=== PATIENT | female | born 1960 | race Caucasian/White ===

== ENCOUNTER 2018-05-28 12:45 | Day surgery (SDC) | payer BC ==
[~2018-05-28] VITALS: Ht 175.3 cm; Wt 129.5 kg
[2018-05-28] MEDS ORDERED: ATOR40TA PO (13:33)
[2018-05-28] MEDS ORDERED: LEVSOD150 PO (13:34)
[2018-05-28] MEDS ORDERED: METF500C PO (13:34)
[2018-05-28] MEDS ORDERED: LOSA50 PO (13:34)
[2018-05-28] MEDS ORDERED: CELE200 PO (13:35)
[2018-05-28] MEDS ORDERED: Premarin0.3 MG PO (13:35)
[2018-05-28] MEDS ORDERED: BUSP10 PO (13:37)
== END 2018-05-28 14:50 | disposition home or self-care (01) ==
LOC: ORSCSDS 12:45
PROVIDERS: Surgery
PROC: 0DBK8ZX Excision of Ascending Colon, Via Natural or Artificial Opening Endoscopic, Diagnostic (ICD-10-PCS; principal; 2018-05-28 14:00)
DX: Z12.11 Encounter for screening for malignant neoplasm of colon (principal); K63.5 Polyp of colon; K57.30 Diverticulosis of large intestine without perforation or abscess without bleeding; E11.9 Type 2 diabetes mellitus without complications; I10 Essential (primary) hypertension; J45.909 Unspecified asthma, uncomplicated; E03.9 Hypothyroidism, unspecified; Z79.899 Other long term (current) drug therapy; E78.5 Hyperlipidemia, unspecified; E66.01 Morbid (severe) obesity due to excess calories; Z68.41 Body mass index [BMI] 40.0-44.9, adult
CPT/HCPCS: 82947; 88305; J7120

== ENCOUNTER 2023-04-24 08:30 | Day surgery (SDC) | payer OTHER ==
[~2023-04-24] VITALS: Ht 175.3 cm; Wt 111.6 kg
[~2023-04-24 08:30] MED LIST: ATOR40TA PO; BUSP10 PO; CELE200 PO; GABA100 PO; HYDCHL12.5 PO; LEVOTHYROXINE137 M11 PO; LEVSOD150 PO; LOSA50 PO; MELO7.5 PO; METF500C PO; PRAV20 PO; Premarin0.3 MG PO
[2023-04-24] MEDS ORDERED: DONA750 MG (09:07)
[2023-04-24 10:05] VITALS: BP 129/67
== END 2023-04-24 10:18 | disposition home or self-care (01) ==
LOC: ORSCSDS 08:30
PROVIDERS: Student in an Organized Health Care Education/Training Program
PROC: 08RJ3JZ Replacement of Right Lens with Synthetic Substitute, Percutaneous Approach (ICD-10-PCS; principal; 2023-04-24 10:00)
DX: E11.36 Type 2 diabetes mellitus with diabetic cataract (principal); Z87.891 Personal history of nicotine dependence; F41.9 Anxiety disorder, unspecified; J45.909 Unspecified asthma, uncomplicated; F32.A Depression, unspecified; E05.90 Thyrotoxicosis, unspecified without thyrotoxic crisis or storm; Z79.84 Long term (current) use of oral hypoglycemic drugs; Z79.899 Other long term (current) drug therapy
CPT/HCPCS: 82947; J2250; J3010; J7040; V2632

== ENCOUNTER 2023-05-04 09:05 | Day surgery (SDC) | payer OTHER ==
[~2023-05-04] VITALS: Ht 175.3 cm; Wt 112.5 kg
[~2023-05-04 09:05] MED LIST changes: +DONA750 MG
[2023-05-04] MEDS ORDERED: ERGO400 (09:56)
[2023-05-04] MEDS ORDERED: Vitamin B-1250 MC1 (09:57)
[2023-05-04 10:34] VITALS: BP 130/76
== END 2023-05-04 10:45 | disposition home or self-care (01) ==
LOC: ORSCSDS 09:05
PROVIDERS: Student in an Organized Health Care Education/Training Program
PROC: 08RK3JZ Replacement of Left Lens with Synthetic Substitute, Percutaneous Approach (ICD-10-PCS; principal; 2023-05-04 10:30)
DX: E11.36 Type 2 diabetes mellitus with diabetic cataract (principal); Z96.1 Presence of intraocular lens; H25.12 Age-related nuclear cataract, left eye; I10 Essential (primary) hypertension; F41.9 Anxiety disorder, unspecified; Z87.891 Personal history of nicotine dependence; E05.90 Thyrotoxicosis, unspecified without thyrotoxic crisis or storm; F32.A Depression, unspecified; J45.909 Unspecified asthma, uncomplicated; Z79.84 Long term (current) use of oral hypoglycemic drugs; Z79.899 Other long term (current) drug therapy
CPT/HCPCS: 82947; J2250; J3010; J7040; V2632

== ENCOUNTER 2023-11-26 08:04 | Day surgery (SDC) | payer OTHER ==
[2023-11-26] VITALS (16 sets, daily range): BP systolic 94–138; BP diastolic 47–75
[~2023-11-26] VITALS: Ht 175.3 cm; Wt 107.9 kg
[~2023-11-26 08:04] MED LIST changes: +ERGO400; +KETO.5OPSO; +TRAM50 PO; +Vitamin B-1250 MC1
[2023-11-26] MEDS ORDERED: Lactated Ringer's 1,000 ML IV SCH ×2 (08:05→10:50)
[2023-11-26] MEDS ORDERED: Chlorhexidine Mouth Care 15 ML UDC MT SCH (08:05)
[2023-11-26] MEDS ORDERED: Ropivacaine 0.5% HCl/Pf 123.125 MG,EPINEPHrine HCL 0.25 MG,Ketorolac Tromethamine 15 MG... INFIL SCH (08:05)
[2023-11-26] MEDS ORDERED: OxyCODONE HCL 10 MG TABCR PO SCH (08:05)
[2023-11-26] MEDS ORDERED: Acetaminophen 500 MG Tab PO SCH ×2 (08:05→16:00)
[2023-11-26] MEDS ORDERED: Tranexamic Acid 100 ML IV SCH ×2 (08:30→10:05)
[2023-11-26] MEDS ORDERED: CeFAZolin Sodium 2,000 MG in NS 100 ML IV SCH ×2 (08:30→20:00)
[2023-11-26] MEDS ORDERED: propofoL 60 ML IV ONE (08:41)
[2023-11-26] MEDS ORDERED: FentaNYL Citrate 50 MCG/ML 2 ML Injection ONE (08:41)
[2023-11-26] MEDS ORDERED: Midazolam HCl 1MG / ML 2ML Vial ONE (10:34)
[2023-11-26] MEDS ORDERED: DiphenhydrAMINE HCL 25 MG Cap PO PRN (10:50)
[2023-11-26] MEDS ORDERED: HYDROmorphone HCl/Pf 1MG SYR IV PRN (10:50)
[2023-11-26] MEDS ORDERED: Promethazine HCl 25 MG Tab PO PRN (10:50)
[2023-11-26] MEDS ORDERED: Ondansetron HCl 2 MG / ML 2ML Vial IV PRN (10:50)
[2023-11-26] MEDS ORDERED: OxyCODONE HCL 5 MG TAB PO PRN ×2 (10:50)
[2023-11-26] MEDS ORDERED: Metoclopramide HCl 5MG / ML 2ML Vial IV PRN (10:50)
[2023-11-26] MEDS ORDERED: ePHEDrine Sulfate 50 MG/ML 1ML Injection ONE (11:04)
[2023-11-26] MEDS ORDERED: propofoL 20 ML IV ONE (11:48)
[2023-11-26] MEDS ORDERED: Ketorolac Tromethamine 30mg Vial IV SCH (12:00)
[2023-11-26] MEDS ORDERED: Dexamethasone Sod Phos 10 MG/ML 1ML VIAL ONE (12:15)
[2023-11-26] MEDS ORDERED: Phenylephrine HCl 100 MCG/ML-NS 10MLSYR (1MG/10ML) ONE (12:15)
[2023-11-26] MEDS ORDERED: Ondansetron HCl 2 MG / ML 2ML Vial ONE (12:15)
[2023-11-26] MEDS ORDERED: Glycopyrrolate 0.2 MG/ML 5ML VIAL ONE (12:16)
[2023-11-26] MEDS ORDERED: Ketorolac Tromethamine 30mg Vial ONE (12:57)
--- NOTE | 2023-11-26 13:43 | NUR ---
PACU TO 219 PT ARRIVED ON HER BED FROM PACU, A/OX 4, ABLE TO WIGGLE TOES AND LIFT LEGS OFF THE BED. DISCUSSED PLAN OF CARE FOR THE DAY, NO QUESTIONS AT THIS TIME.
--- NOTE | 2023-11-26 19:36 | NUR ---
SHIFT SUMMARY POD0 L TKA, A/OX4, VSS, TOLERATING PO, UP WITH THERAPY AND IN THE CHAIR, SEVAL VOIDS SINCE SURGERY, PT LOST IV ACCESS WHILE GETTING UP WITH THERAPY WHEN SHE HIT HER HAND ON THE BEDRAIL. NO ACUTE EVENTS THIS SHIFT, CALL LIGHT IN REACH.
[2023-11-26] MEDS ORDERED: Magnesium Hydroxide Conc 10 ML UDC PO PRN (23:10)
[2023-11-26] MEDS ORDERED: Bisacodyl 10 MG Supp PR PRN (23:10)
[2023-11-27] MEDS ORDERED: CeFAZolin Sodium 2,000 MG in NS 100 ML IV SCH
[2023-11-27 03:59] VITALS: BP 128/64
[2023-11-27 05:12] LABS: BASOPHILS ABSOLUTE AUTO 0.01 K/mm3 (0.00-0.23); BASOPHILS PERCENT AUTO 0 % (0-2); EOSINOPHILS ABSOLUTE AUTO 0.01 K/mm3 (0.00-0.68); EOSINOPHILS PERCENT AUTO 0 % (0-6); Hemoglobin 13.8 g/dL (11.5-16.0); IMMATURE GRAN ABSOLUTE AUTO 0.07 K/mm3 (0.00-0.10); IMMATURE GRAN PERCENT AUTO 1 % (0-1); LYMPHOCYTES ABSOLUTE AUTO 1.96 K/mm3 (0.84-5.20); LYMPHOCYTES PERCENT AUTO 15 % (21-46); MONOCYTES ABSOLUTE AUTO 0.62 K/mm3 (0.16-1.47); MONOCYTES PERCENT AUTO 5 % (4-13); Mean Corpuscular HGB 33.1 pg (26.0-34.0); Mean Corpuscular HGB Conc 34.5 g/dL (31.5-36.5); Mean Corpuscular Volume 96 fL (80-100); Mean Platelet Volume 9.6 fL (9.1-12.4); NEUTROPHILS ABSOLUTE AUTO 10.55 K/mm3 (1.96-9.15); NEUTROPHILS PERCENT AUTO 80 % (41-73); Platelet Count 230 K/mm3 (150-400); RDW Coefficient Variation 12.2 % (11.7-14.2); Red Blood Cell Count 4.17 M/mm3 (3.80-5.20); White Blood Cell Count 13.22 K/mm3 (4.00-11.30)
[2023-11-27 06:03] LABS: Bun/Creatinine Ratio 16.9 (12.0-20.0); Calcium, Blood 8.6 mg/dL (8.5-10.1); Creatinine, Blood 0.65 mg/dL (0.40-1.00); Magnesium, Blood 1.9 mg/dL (1.6-2.4); Potassium, Blood 3.9 mmol/L (3.5-5.5)
--- NOTE | 2023-11-27 06:35 | NUR ---
SUMMARY- PT HAS BEEN UP TO VOID AND AMBULATE. PT HAS BEEN USING GB AND FWW W/ OUT ISSUE. PT DISCOMFORT TX WELL PER MAR. PT HAS RESTED COMFORTABLY THIS SHIFT. PT DRESSING IS C/D/I. CALL LIGHT IN REACH.
[2023-11-27] MEDS ORDERED: OXYC5 PO (07:11)
[2023-11-27] MEDS ORDERED: ASPI81CH PO (07:12)
[2023-11-27] MEDS ORDERED: Insulin Human Lispro 100 Units/ML 3ML Syringe SC SCH (07:30)
[2023-11-27 07:36] VITALS: BP 150/68
[2023-11-27] MEDS ORDERED: MetFORMIN HCl 500 mg PO SCH (08:00)
[2023-11-27] MEDS ORDERED: Aspirin 81 MG Chew PO SCH (09:00)
[2023-11-27] MEDS ORDERED: HydroCHLOROthiazide 25 mg Tab PO SCH (09:00)
[2023-11-27] MEDS ORDERED: Docusate Sodium 100 MG Cap PO SCH (09:00)
[2023-11-27] MEDS ORDERED: Losartan Potassium 50 MG Tab PO SCH (09:00)
--- NOTE | 2023-11-27 14:14 | NUR ---
DISCHARGE SUMMARY POD1 L TKA, A/OX4, VSS, TOLERATING PO, PAIN WELL MANAGED, VOIDING INDEPENDENTLY, WORKED WITH THERAPY, AMBULATING SBA. REMOVED IV ACCESS DURING DC INSTRUCTIONS. DISCUSSED DC INSTRUCTIONS INCLUDING HOME CARE, MEDICATIONS, AND FOLLOW UP APPOINTMENTS. NO QUESTIONS AT THIS TIME, PROVIDED HER WITH AN ADDITIONAL DRESSING TO CHANGE AT HOME PER INSTRUCTIONS. ESCORTED OUT VIA WC TO PRIVATE AUTO.
== END 2023-11-27 13:31 | disposition home or self-care (01) ==
LOC: ORSCMMR 08:04 → ORD 10:30 → ORSCMMR 10:30 → SURS 12:58 → ORD 13:15 → ORSCMMR 11-27 01:05 → SURS 11-27 01:05 → ORSCMMR 11-27 13:31 → SURS 11-27 13:31
PROVIDERS: Orthopaedic Surgery
PROC: 0SRD0JA Replacement of Left Knee Joint with Synthetic Substitute, Uncemented, Open Approach (ICD-10-PCS; principal; 2023-11-26 10:30)
PROC: 8E0Y0CZ Robotic Assisted Procedure of Lower Extremity, Open Approach (ICD-10-PCS; principal; 2023-11-26 10:30)
DX: M17.12 Unilateral primary osteoarthritis, left knee (principal); E11.9 Type 2 diabetes mellitus without complications; I50.9 Heart failure, unspecified; F32.A Depression, unspecified; E05.90 Thyrotoxicosis, unspecified without thyrotoxic crisis or storm; Z79.899 Other long term (current) drug therapy; Z87.891 Personal history of nicotine dependence; Z79.84 Long term (current) use of oral hypoglycemic drugs
CPT/HCPCS: 36415; 73560-LT; 80048; 82947; 83735; 85025; 97110; 97116; 97161; 97530; A9270; C1713; C1776; J0171; J0690; J0735; J1100; J1885; J2250; J2371; J2405; J2704; J2795; J3010; J7120

== ENCOUNTER 2025-02-03 13:52 | Day surgery (SDC) | payer OTHER ==
[2025-02-03] VITALS (13 sets, daily range): BP systolic 114–190; BP diastolic 66–104
[~2025-02-03] VITALS: Ht 172.7 cm; Wt 113.2 kg
[~2025-02-03 13:52] MED LIST changes: +ASPI81CH PO; +OXYC5 PO
[2025-02-03] MEDS ORDERED: GLIP5 PO (14:40)
--- NOTE | 2025-02-03 15:00 | NUR ---
History, Chart, Medications and Allergies reviewed before start of procedure.Patient confirms NPO status and agrees with scheduled surgery. Patient States Post-Procedure ride home has been arranged. Pre-Op teaching done. Pt verbalizes understanding.
--- NOTE | 2025-02-03 15:28 | NUR ---
02/03/25 1528 Kateryna Marvin CONFIRMED AND REVIEWED H&P, MEDCICATIONS, ALLERGIES, MEDICAL HISTORY, RESPIRATORY HISTORY, VITAL SIGNS, 3-LEAD EKG, CONSENTS, AND PHYSICIAN ORDERS. PATIENT CONFIRMS NPO STATUS AND AGREES WITH SCHEDULED PROCEDURE. MONITOR INTACT WITH CONTINUOUS PULSE OXIMETRY, CAPNOGRAPHY, 3-LEAD EKG, INTERMITTENT BP. SUPPLEMENTAL O2 TO BE TITRATED THROUGHOUT PROCEDURE TO MAINTAIN O2 SATURATION ABOVE 90%. PATIENT DETERMINED TO BE ASA APPROPRIATE FOR PROPOFOL SEDATION PRIOR TO START OF PROCEDURE BY DR. MARCUS.
--- NOTE | 2025-02-03 16:46 | NUR ---
TO STEP POST PROCEDURE. DENIES PAIN, NAUSEA, SOB. JARON PO WELL. DC'D IV INTACT. VERBALIZED UNDERSTANDING OF DC INSTRUCTIONS. DC'D VIA WC TO PRIVATE CAR WITH HATCH BOSS.
== END 2025-02-03 22:00 | disposition home or self-care (01) ==
LOC: ORSCMMR 13:52 → ORD 15:15 → ORSCMMR 22:00
PROVIDERS: Surgery
PROC: 0DJD8ZZ Inspection of Lower Intestinal Tract, Via Natural or Artificial Opening Endoscopic (ICD-10-PCS; principal; 2025-02-03 15:15)
DX: Z12.11 Encounter for screening for malignant neoplasm of colon (principal); K60.30 Anal fistula, unspecified; Z86.0101 Personal history of adenomatous and serrated colon polyps; Z86.0102 Personal history of hyperplastic colon polyps; E11.9 Type 2 diabetes mellitus without complications; I10 Essential (primary) hypertension; E05.90 Thyrotoxicosis, unspecified without thyrotoxic crisis or storm; E78.5 Hyperlipidemia, unspecified; J45.909 Unspecified asthma, uncomplicated; F41.9 Anxiety disorder, unspecified; I50.9 Heart failure, unspecified; F32.A Depression, unspecified; Z79.84 Long term (current) use of oral hypoglycemic drugs; Z79.899 Other long term (current) drug therapy; Z87.891 Personal history of nicotine dependence
CPT/HCPCS: 82947; J2704; J7120